=== PATIENT | male | born 1935 | race Caucasian/White ===

== ENCOUNTER → 2016-07-25 | Outpatient (CLI) | payer OTHER, MEDICARE ==
[~2016-07-25] MED LIST: ASPIR 8181 MG PO; ASTELIN30 ML NS; ATORVASTATIN CA20 MG PO; CARDIZEM CD240 MG PO; CARVEDILOL3.125 MG PO; COZAAR 25 MG TA25 M1 PO; CYMBALTA60 MG PO; MELOXICAM7.5 MG PO; MOBIC15 MG PO; PERCOCET 5-3251 EACH PO; PROVENTIL; REGLAN 10 MG TA10 MG PO; SINGULAIR 10 MG10 M1 PO; VICODIN 5-5001 EACH PO; XARELTO15 MG PO; ZYRTEC OR
[2016-07-25 09:22] LABS: CALCIUM 8.7 mg/dL (8.5-10.1); CREATININE 1.2 mg/dL (0.7-1.3)
== END ==
LOC: CAT 08:38
PROVIDERS: Internal Medicine
DX: I48.91 Unspecified atrial fibrillation (principal)

== ENCOUNTER 2017-02-07 08:22 | Emergency (ER) | payer OTHER, MEDICARE ==
[~2017-02-07] VITALS: Ht 175.3 cm; Wt 74.8 kg
[2017-02-07] MEDS ORDERED: VALIUM5 MG PO (08:53)
[2017-02-07] MEDS ORDERED: COMPAZINE10 MG PO (11:33)
[2017-02-07 11:35] VITALS: BP 112/78
== END 2017-02-07 11:38 | disposition home or self-care (01) ==
LOC: ER 08:22
DX: R06.6 Hiccough (principal); I48.91 Unspecified atrial fibrillation; F17.210 Nicotine dependence, cigarettes, uncomplicated; F10.99 Alcohol use, unspecified with unspecified alcohol-induced disorder

== ENCOUNTER 2017-02-16 22:33 | Emergency (ER) | payer OTHER, MEDICARE ==
[~2017-02-16] VITALS: Ht 175.3 cm; Wt 74.8 kg
[~2017-02-16 22:33] MED LIST changes: +COMPAZINE10 MG PO; +VALIUM5 MG PO
[2017-02-16] MEDS ORDERED: CHLORPROMAZINE25 M1 PO (23:44)
[2017-02-16 23:51] LABS: HEMATOCRIT 44.2 % (42.0-52.0); HEMOGLOBIN 14.8 gm/dL (14.0-18.0); MCHC 33.5 g/dL (28.0-37.0); MCV 98.6 fL (80.0-100.0); PLATELET COUNT 196 thou/uL (150-400); RBC 4.48 mil/uL (4.50-6.00); RDW 13.5 % (10.5-14.5); WBC 7.9 thou/uL (4.0-11.0)
[2017-02-17] LABS: MANUAL DIFF YES
[2017-02-17 00:24] VITALS: BP 138/81
[2017-02-17 00:30] LABS: ABSOLUTE NEUTROPHILS 3.5 thou/uL (1.4-8.2); ATYPICAL LYMPHS 4 %; TOTAL CELL COUNT 100
== END 2017-02-17 00:57 | disposition home or self-care (01) ==
LOC: ER 22:33
PROVIDERS: Emergency Medicine
DX: R06.6 Hiccough (principal); I48.91 Unspecified atrial fibrillation; F17.210 Nicotine dependence, cigarettes, uncomplicated; F10.99 Alcohol use, unspecified with unspecified alcohol-induced disorder

== ENCOUNTER → 2017-07-12 | Outpatient (CLI) | payer OTHER, MEDICARE ==
[~2017-07-12] MED LIST changes: +CHLORPROMAZINE25 M1 PO
== END ==
LOC: CAT 11:25
DX: R51 Headache (principal); I48.91 Unspecified atrial fibrillation; Z91.81 History of falling

== ENCOUNTER 2017-09-05 16:26 | Emergency (ER) | payer OTHER, MEDICARE ==
[~2017-09-05] VITALS: Ht 177.8 cm; Wt 72.6 kg
[2017-09-05] MEDS ORDERED: NORFLEX100 MG PO (17:08)
[2017-09-05] MEDS ORDERED: NAPROSYN500 MG PO (17:08)
[2017-09-05 17:35] VITALS: BP 133/81
== END 2017-09-05 17:25 | disposition home or self-care (01) ==
LOC: ER 16:26
DX: S46.811A Strain of other muscles, fascia and tendons at shoulder and upper arm level, right arm, initial encounter (principal); S16.1XXA Strain of muscle, fascia and tendon at neck level, initial encounter; I48.91 Unspecified atrial fibrillation; F17.210 Nicotine dependence, cigarettes, uncomplicated; X58.XXXA Exposure to other specified factors, initial encounter; Y93.89 Activity, other specified; Y92.89 Other specified places as the place of occurrence of the external cause; Y99.8 Other external cause status

== ENCOUNTER 2017-09-07 12:30 | Inpatient (IN) | payer OTHER, MEDICARE ==
[~2017-09-07] VITALS: Ht 172.7 cm; Wt 70.8 kg
[~2017-09-07 12:30] MED LIST changes: -ACCUNEB SO1.25 MG/1 INH; -ARICEPT 5 MG TAB5 MG PO; -DILTIAZEM 24HR180 M2 PO; -KEFLEX500 M2 PO; -OMEPRAZOLE 20 M20 M1 PO
[2017-09-07 12:36] VITALS: BP 155/80
[2017-09-07 14:05] LABS: URINE BILIRUBIN NEGATIVE (Negative); URINE BLOOD TRACE (Negative); URINE CLARITY CLEAR; URINE COLOR YELLOW; URINE GLUCOSE-RANDOM* NEGATIVE (Negative); URINE KETONES NEGATIVE (Negative); URINE NITRITE-REFLEX NEGATIVE (Negative); URINE PROTEIN (DIPSTICK) NEGATIVE (Negative); URINE SPECIFIC GRAVITY <= 1.005 (1.005-1.035); URINE UROBILINOGEN 0.2 E.U./dl (0.2-1.0)
[2017-09-07 14:06] LABS: URINE LEUKOCYTES-REFLEX 1+ (Negative)
[2017-09-07 14:13] LABS: CASTS None Seen /LPF (None Seen); SQUAMOUS 4-10 Moderate /LPF (0-3)
[2017-09-07 14:14] LABS: BACTERIA-REFLEX None Seen /HPF (None Seen); CRYSTALS None Seen /LPF (None Seen); URINE RBC 0-2 Rare /HPF (0-2); URINE WBC-REFLEX 0-5 Rare /HPF (0-5)
[2017-09-07] MEDS ORDERED: DILTIAZEM 24HR180 M2 PO (14:23)
[2017-09-07] MEDS ORDERED: OMEPRAZOLE 20 M20 M1 PO (14:25)
[2017-09-07] MEDS ORDERED: ARICEPT 5 MG TAB5 MG PO (14:26)
[2017-09-07] MEDS ORDERED: ACCUNEB SO1.25 MG/1 INH (14:29)
[2017-09-07 14:49] VITALS: BP 155/80
[2017-09-07 16:05] VITALS: BP 153/81
[2017-09-07 20:00] VITALS: BP 142/78
[2017-09-08 04:00] VITALS: BP 128/86
[2017-09-08 05:07] LABS: CALCIUM 8.6 mg/dL (8.5-10.1)
[2017-09-08 05:32] LABS: POTASSIUM 3.8 mmol/L (3.5-5.1)
[2017-09-08 07:10] VITALS: BP 118/76
[2017-09-08 07:17] LABS: HEMATOCRIT 37.3 % (42.0-52.0); HEMOGLOBIN 12.6 gm/dL (14.0-18.0); MCH 32.7 pg (26.0-34.0); MCHC 33.7 g/dL (28.0-37.0); MCV 96.8 fL (80.0-100.0); RBC 3.86 mil/uL (4.50-6.00)
[2017-09-08 16:25] VITALS: BP 110/73
[2017-09-08 20:24] VITALS: BP 122/83
[2017-09-09 04:30] VITALS: BP 129/83
[2017-09-09 10:26] LABS: HEMATOCRIT 35.6 % (42.0-52.0); HEMOGLOBIN 12.4 gm/dL (14.0-18.0); MCHC 34.8 g/dL (28.0-37.0); MCV 94.9 fL (80.0-100.0); RBC 3.75 mil/uL (4.50-6.00); RDW 12.9 % (10.5-14.5); WBC 7.4 thou/uL (4.0-11.0)
[2017-09-09 10:51] LABS: ALBUMIN 2.9 g/dL (3.4-5.0); MAGNESIUM 2.1 mg/dL (1.8-2.4); POTASSIUM 4.2 mmol/L (3.5-5.1); TOTAL BILIRUBIN 0.5 mg/dL (<0.1-1.0); TOTAL PROTEIN 6.3 g/dL (6.4-8.2)
[2017-09-09] MEDS ORDERED: KEFLEX500 M2 PO (12:11)
[2017-09-09 12:44] VITALS: BP 105/82
== END 2017-09-09 14:14 | disposition home or self-care (01) | DRG 689 ==
LOC: ER 12:30 → EROBS 13:34 → 4N 16:10
PROVIDERS: Emergency Medicine; Internal Medicine; Nurse Practitioner Family
DX: N39.0 Urinary tract infection, site not specified (principal); G93.40 Encephalopathy, unspecified; I42.9 Cardiomyopathy, unspecified; I48.91 Unspecified atrial fibrillation; F03.90 Unspecified dementia, unspecified severity, without behavioral disturbance, psychotic disturbance, mood disturbance, and anxiety; E78.5 Hyperlipidemia, unspecified; F10.10 Alcohol abuse, uncomplicated; F17.210 Nicotine dependence, cigarettes, uncomplicated; Z79.01 Long term (current) use of anticoagulants; Z71.6 Tobacco abuse counseling; Z79.82 Long term (current) use of aspirin; Z79.899 Other long term (current) drug therapy
CPT/HCPCS: 10790

== ENCOUNTER → 2017-09-07 | Outpatient (CLI) | payer OTHER, MEDICARE ==
[~2017-09-07] MED LIST changes: +ACCUNEB SO1.25 MG/1 INH; +ARICEPT 5 MG TAB5 MG PO; +DILTIAZEM 24HR180 M2 PO; +KEFLEX500 M2 PO; +NAPROSYN500 MG PO; +NORFLEX100 MG PO; +OMEPRAZOLE 20 M20 M1 PO
[2017-09-07 10:38] LABS: HEMATOCRIT 38.3 % (42.0-52.0); MCH 32.7 pg (26.0-34.0); MCHC 33.9 g/dL (28.0-37.0); MCV 96.6 fL (80.0-100.0); PLATELET COUNT 227 thou/uL (150-400); RBC 3.97 mil/uL (4.50-6.00); WBC 13.9 thou/uL (4.0-11.0)
[2017-09-07 10:56] LABS: CALCIUM 9.3 mg/dL (8.5-10.1); CREATININE 1.3 mg/dL (0.7-1.3); POTASSIUM 5.1 mmol/L (3.5-5.1)
[2017-09-07 10:58] LABS: ABSOLUTE NEUTROPHILS 10.3 thou/uL (1.4-8.2); ANISOCYTOSIS SLIGHT
[2017-09-07 11:01] LABS: ALBUMIN 3.9 g/dL (3.4-5.0); TOTAL BILIRUBIN 1.3 mg/dL (<0.1-1.0); TOTAL PROTEIN 6.6 g/dL (6.4-8.2)
== END ==
LOC: RAD 09:48 → LABMALL 09:48
PROVIDERS: Nurse Practitioner
DX: M19.011 Primary osteoarthritis, right shoulder (principal); M19.021 Primary osteoarthritis, right elbow; M75.91 Shoulder lesion, unspecified, right shoulder; I67.2 Cerebral atherosclerosis; G31.9 Degenerative disease of nervous system, unspecified; Z91.81 History of falling

== ENCOUNTER 2017-10-08 02:58 | Emergency (ER) | payer OTHER, MEDICARE ==
[~2017-10-08] VITALS: Ht 172.7 cm; Wt 79.4 kg
[~2017-10-08 02:58] MED LIST changes: +ACCUNEB SO1.25 MG/1 INH; +ARICEPT 5 MG TAB5 MG PO; +DILTIAZEM 24HR180 M2 PO; +KEFLEX500 M2 PO; +OMEPRAZOLE 20 M20 M1 PO
[2017-10-08] MEDS ORDERED: CYMBALTA60 MG PO (03:11)
[2017-10-08 03:35] LABS: ABSOLUTE NEUTROPHILS 6.8 thou/uL (1.4-8.2); BASOPHILS 0.5 % (0.0-2.0); EOSINOPHILS 1.9 % (0.0-3.0); HEMATOCRIT 39.8 % (42.0-52.0); HEMOGLOBIN 13.8 gm/dL (14.0-18.0); LYMPHOCYTES 18.8 % (24.0-44.0); MCH 32.7 pg (26.0-34.0); MCHC 34.8 g/dL (28.0-37.0); MCV 93.9 fL (80.0-100.0); MONOCYTES 9.7 % (1.0-8.0); PLATELET COUNT 238 thou/uL (150-400); POLYS 69.1 % (36.0-66.0); RBC 4.23 mil/uL (4.50-6.00); WBC 9.9 thou/uL (4.0-11.0)
[2017-10-08 03:44] LABS: CALCIUM 9.2 mg/dL (8.5-10.1); CREATININE 1.2 mg/dL (0.7-1.3); POTASSIUM 4.2 mmol/L (3.5-5.1)
[2017-10-08 03:50] LABS: ALBUMIN 3.8 g/dL (3.4-5.0); TOTAL BILIRUBIN 0.8 mg/dL (<0.1-1.0); TOTAL PROTEIN 7.2 g/dL (6.4-8.2); URIC ACID* 5.6 mg/dL (2.6-7.2)
[2017-10-08] MEDS ORDERED: TRAMADOL 50 MG50 MG PO (03:57)
[2017-10-08] MEDS ORDERED: KEFLEX500 M1 PO (03:57)
[2017-10-08 04:06] LABS: URINE BILIRUBIN NEGATIVE (Negative); URINE BLOOD 1+ (Negative); URINE CLARITY CLEAR; URINE COLOR YELLOW; URINE GLUCOSE-RANDOM* NEGATIVE (Negative); URINE KETONES NEGATIVE (Negative); URINE NITRITE-REFLEX NEGATIVE (Negative); URINE PROTEIN (DIPSTICK) NEGATIVE (Negative); URINE SPECIFIC GRAVITY 1.015 (1.005-1.035); URINE UROBILINOGEN 0.2 E.U./dl (0.2-1.0)
[2017-10-08 04:10] LABS: URINE LEUKOCYTES-REFLEX TRACE (Negative)
[2017-10-08 04:25] VITALS: BP 145/90
[2017-10-08 04:36] LABS: CASTS None Seen /LPF (None Seen); CRYSTALS None Seen /LPF (None Seen); SQUAMOUS 0-3 Few /LPF (0-3); URINE RBC 3-10 Few /HPF (0-2); URINE WBC-REFLEX 0-5 Rare /HPF (0-5)
[2017-10-08 04:37] LABS: BACTERIA-REFLEX 1-9 Few /HPF (None Seen)
[2017-10-09] MEDS ORDERED: FLOMAX0.4 MG PO (20:18)
[2017-10-09] MEDS ORDERED: DYRENIUM50 MG PO (20:19)
== END 2017-10-08 04:26 | disposition home or self-care (01) ==
LOC: ER 02:58
PROVIDERS: Emergency Medicine
DX: S60.561A Insect bite (nonvenomous) of right hand, initial encounter (principal); L03.113 Cellulitis of right upper limb; M19.041 Primary osteoarthritis, right hand; I48.91 Unspecified atrial fibrillation; E78.5 Hyperlipidemia, unspecified; I42.9 Cardiomyopathy, unspecified; F17.210 Nicotine dependence, cigarettes, uncomplicated; Z88.8 Allergy status to other drugs, medicaments and biological substances; W57.XXXA Bitten or stung by nonvenomous insect and other nonvenomous arthropods, initial encounter; Y93.89 Activity, other specified; Y92.89 Other specified places as the place of occurrence of the external cause; Y99.8 Other external cause status

== ENCOUNTER 2017-10-09 20:05 | Inpatient (IN) | payer OTHER, MEDICARE ==
[~2017-10-09] VITALS: Ht 175.3 cm; Wt 73.5 kg
[~2017-10-09 20:05] MED LIST changes: +KEFLEX500 M1 PO; +TRAMADOL 50 MG50 MG PO
[2017-10-09 20:12] VITALS: BP 109/75
[2017-10-09] MEDS ORDERED: FLOMAX0.4 MG PO (20:18)
[2017-10-09] MEDS ORDERED: DYRENIUM50 MG PO (20:19)
[2017-10-09 21:33] LABS: BASOPHILS 0.5 % (0.0-2.0); EOSINOPHILS 2.2 % (0.0-3.0); HEMOGLOBIN 13.8 gm/dL (14.0-18.0); LYMPHOCYTES 26.6 % (24.0-44.0); MCH 32.8 pg (26.0-34.0); MCHC 35.3 g/dL (28.0-37.0); MCV 93.1 fL (80.0-100.0); MONOCYTES 10.5 % (1.0-8.0); PLATELET COUNT 237 thou/uL (150-400); POLYS 60.2 % (36.0-66.0); RBC 4.19 mil/uL (4.50-6.00); RDW 14.4 % (10.5-14.5); WBC 11.6 thou/uL (4.0-11.0)
[2017-10-09 21:45] LABS: CALCIUM 9.5 mg/dL (8.5-10.1); CREATININE 1.2 mg/dL (0.7-1.3); POTASSIUM 3.9 mmol/L (3.5-5.1)
[2017-10-09 21:51] LABS: TOTAL BILIRUBIN 0.5 mg/dL (<0.1-1.0); TOTAL PROTEIN 7.8 g/dL (6.4-8.2)
[2017-10-10 08:13] LABS: HEMATOCRIT 35.4 % (42.0-52.0); HEMOGLOBIN 12.6 gm/dL (14.0-18.0); MCH 32.9 pg (26.0-34.0); MCHC 35.4 g/dL (28.0-37.0); MCV 92.8 fL (80.0-100.0); RBC 3.82 mil/uL (4.50-6.00); RDW 14.4 % (10.5-14.5); WBC 7.9 thou/uL (4.0-11.0)
[2017-10-10 11:47] VITALS: BP 110/81
[2017-10-10 12:15] VITALS: BP 125/93
[2017-10-10 16:00] VITALS: BP 128/94
[2017-10-10 20:20] VITALS: BP 121/85
[2017-10-11 04:30] VITALS: BP 124/85
[2017-10-11] MEDS ORDERED: CEFDINIR300 MG PO (08:01)
[2017-10-11] MEDS ORDERED: PREDNISONE 20 M20 M1 PO (08:01)
[2017-10-11 12:16] VITALS: BP 109/58
== END 2017-10-11 13:29 | disposition home or self-care (01) | DRG 603 ==
LOC: ER 20:05 → 4E 22:40 → ER 22:40 → EROBS 22:40 → 4E 10-10 12:25 → ENTRNSPT 10-11 13:13 → EDTRNSPTSTS 10-11 13:16 → 4E 10-11 13:29
PROVIDERS: Family Medicine; Physician Assistant
DX: L03.113 Cellulitis of right upper limb (principal); I42.9 Cardiomyopathy, unspecified; M10.9 Gout, unspecified; I48.91 Unspecified atrial fibrillation; F03.90 Unspecified dementia, unspecified severity, without behavioral disturbance, psychotic disturbance, mood disturbance, and anxiety; E78.5 Hyperlipidemia, unspecified; M19.90 Unspecified osteoarthritis, unspecified site; Z16.30 Resistance to unspecified antimicrobial drugs; F17.210 Nicotine dependence, cigarettes, uncomplicated; I10 Essential (primary) hypertension; Z98.49 Cataract extraction status, unspecified eye; Z88.8 Allergy status to other drugs, medicaments and biological substances; Z79.899 Other long term (current) drug therapy
CPT/HCPCS: 10084

== ENCOUNTER 2018-04-05 15:20 | Emergency (ER) | payer OTHER, MEDICARE ==
[~2018-04-05] VITALS: Ht 172.7 cm; Wt 65.8 kg
[~2018-04-05 15:20] MED LIST changes: +CEFDINIR300 MG PO; +DYRENIUM50 MG PO; +FLOMAX0.4 MG PO; +PREDNISONE 20 M20 M1 PO
[2018-04-05 16:36] LABS: HEMATOCRIT 43.8 % (42.0-52.0); HEMOGLOBIN 15.1 gm/dL (14.0-18.0); MCH 33.8 pg (26.0-34.0); MCHC 34.5 g/dL (28.0-37.0); PLATELET COUNT 250 thou/uL (150-400); RBC 4.47 mil/uL (4.50-6.00); RDW 14.2 % (10.5-14.5); WBC 5.3 thou/uL (4.0-11.0)
[2018-04-05 16:46] LABS: ANION GAP 11 mmol/L (7-16); BUN 15 mg/dL (7-18); CALCIUM 9.5 mg/dL (8.5-10.1); CHLORIDE 101 mmol/L (98-107); CO2 26 mmol/L (21-32); CREATININE 1.2 mg/dL (0.7-1.3); GLUCOSE 98 mg/dL (74-106); POTASSIUM 4.3 mmol/L (3.5-5.1); SODIUM 138 mmol/L (136-145)
[2018-04-05 16:55] LABS: MAGNESIUM 2.1 mg/dL (1.8-2.4); TROPONIN-I <0.06 ng/mL (<0.06)
[2018-04-05 17:01] LABS: ABSOLUTE NEUTROPHILS 2.3 thou/uL (1.4-8.2)
[2018-04-05 17:49] VITALS: BP 119/68
--- NOTE | 2018-04-05 19:24 | EKG ---
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[place] : 1935 Requested By: David Calle Order Number: [id number] MD: Cody Zapata Measurements Intervals [place] Rate: 130 P: [place]: QRS: -88 QRSD: 88 T: 85 QT: 368 QTc: 541 Interpretive Statements Atrial fibrillation Left anterior fascicular block Poor R wave progression Nonspecific ST-T wave changes PVC versus Christine beat Compared to ECG 02/28/2017 18:51:07 No significant changes Electronically Signed On 04-05-2018 19:24:00 SOFTWARE TESTING SPECIALIST by Cody Zapata [email or web address] <ELECTRONICALLY SIGNED> By: Cody Zapata MD 04/05/18 1924 1542 1542 Cody Zapata MD /EPI
== END 2018-04-05 17:50 | disposition home or self-care (01) ==
LOC: ER 15:20
PROVIDERS: Physician Assistant
DX: I48.91 Unspecified atrial fibrillation (principal); R42 Dizziness and giddiness; F17.210 Nicotine dependence, cigarettes, uncomplicated; F03.90 Unspecified dementia, unspecified severity, without behavioral disturbance, psychotic disturbance, mood disturbance, and anxiety; I42.9 Cardiomyopathy, unspecified; E78.5 Hyperlipidemia, unspecified; Z88.8 Allergy status to other drugs, medicaments and biological substances

== ENCOUNTER 2019-01-02 15:31 | Inpatient (IN) | payer OTHER, MEDICARE ==
[~2019-01-02] VITALS: Ht 175.3 cm; Wt 67.4 kg
[2019-01-02 15:41] VITALS: BP 69/49
[2019-01-02 16:46] LABS: HEMATOCRIT 43.8 % (42.0-52.0); HEMOGLOBIN 14.8 gm/dL (14.0-18.0); MCH 33.7 pg (26.0-34.0); MCHC 33.7 g/dL (28.0-37.0); MCV 99.8 fL (80.0-100.0); PLATELET COUNT 204 thou/uL (150-400); RBC 4.38 mil/uL (4.50-6.00); RDW 13.6 % (10.5-14.5); WBC 7.2 thou/uL (4.0-11.0)
[2019-01-02 16:54] LABS: ANION GAP 8 mmol/L (7-16); BUN 23 mg/dL (7-18); CALCIUM 9.2 mg/dL (8.5-10.1); CHLORIDE 100 mmol/L (98-107); CO2 28 mmol/L (21-32); CREATININE 1.6 mg/dL (0.7-1.3); GLUCOSE 121 mg/dL (74-106); POTASSIUM 4.2 mmol/L (3.5-5.1); SODIUM 136 mmol/L (136-145)
[2019-01-02 17:04] LABS: ALBUMIN 3.5 g/dL (3.4-5.0); SGOT 14 U/L (15-37); SGPT 12 U/L (30-65); TOTAL BILIRUBIN 0.8 mg/dL (<0.1-1.0); TOTAL PROTEIN 6.7 g/dL (6.4-8.2); TROPONIN-I <0.06 ng/mL (<0.06)
[2019-01-02 17:07] LABS: ABSOLUTE NEUTROPHILS 4.8 thou/uL (1.4-8.2)
[2019-01-02 17:08] LABS: ANISOCYTOSIS 1+
[2019-01-02 17:49] VITALS: BP 96/62
[2019-01-02 18:06] VITALS: BP 107/76
[2019-01-02] MEDS ORDERED: CARDIZEM CD120 MG PO (18:11)
[2019-01-02] MEDS ORDERED: NAMENDA 5 MG TAB5 M1 PO (18:12)
[2019-01-02 18:30] VITALS: BP 119/86
--- NOTE | 2019-01-02 19:15 | NUR ---
PT ADMITED FROM ER. ALERT AND ORIENTED. PT ORIENTED TO THE ROOM AND THE CALL LIGHT SYSTEM. CONTACT ISOLATION IMPLEMENTED. WILL CONTINUE TO MONITOR.
[2019-01-02 20:53] VITALS: BP 104/68
[2019-01-03 00:17] VITALS: BP 131/92
[2019-01-03 04:35] LABS: URINE BILIRUBIN NEGATIVE (Negative); URINE BLOOD NEGATIVE (Negative); URINE CLARITY CLEAR; URINE COLOR YELLOW; URINE GLUCOSE-RANDOM* NEGATIVE (Negative); URINE KETONES NEGATIVE (Negative); URINE LEUKOCYTES-REFLEX NEGATIVE (Negative); URINE NITRITE-REFLEX NEGATIVE (Negative); URINE PROTEIN (DIPSTICK) NEGATIVE (Negative); URINE SPECIFIC GRAVITY 1.025 (1.005-1.035)
[2019-01-03 04:49] VITALS: BP 158/88
--- NOTE | 2019-01-03 05:10 | NUR ---
ASSUMED PT CARE AT 1900. PT WAS AN ADMIT. DAUGHTER AT BEDSIDE. PT IS ALERT AND ORIENTED BUT FORGETFUL. ADMISSION ASSESSMENT AND EDUCATION COMPLETED. DAUGHTER ASSISTED WITH THAT. NO SIGN OF DISTRESS NOTED. FALL PRECAUTION IN PLACE. NO SCHEDULED MEDS ADMINISTERED. PT IS STABLE. CONTINUE TO MONITOR.
[2019-01-03 07:15] VITALS: BP 140/84
[2019-01-03 10:39] VITALS: BP 127/97
[2019-01-03] MEDS ORDERED: ACYCLOVIR 400400 MG PO (15:10)
--- NOTE | 2019-01-03 15:10 | EKG ---
[address] [address] ELECTROCARDIOGRAM REPORT Name: JOSETTE REYNA Room #: 216-P ADM IN M.R.#: [id number] Admission: 01/02/19 Attend Phys: Edil Reyes MD Discharge: Date of : 33 Report #: [id number] THIS REPORT FOR: //name// 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: [place]ARLETT : 1935 Requested By: Shantal Hanson Order Number: [id number] MD: Tevin Vargas Measurements Intervals [place] Rate: 90 P: [place]: QRS: -74 QRSD: 98 T: 76 QT: 382 QTc: 468 Interpretive Statements Atrial fibrillation Ventricular premature complex Left anterior fascicular block Borderline low voltage, extremity leads Abnormal R-wave progression, late transition Compared to ECG 04/05/2018 15:42:27 Poor R-wave progression no longer present ST (T wave) deviation no longer present Electronically Signed On 01-03-2019 15:10:51 CDT by Tevin Vargas [email or web address] <ELECTRONICALLY SIGNED> By: Tevin Vargas MD 01/03/19 1510 1613 1613 Tevin Vargas MD /EPI
[2019-01-03 15:16] VITALS: BP 127/97
--- NOTE | 2019-01-03 15:27 | NUR ---
ASSESSMENT CHARTED PT ALERT TO SELF AND SITUATION WITH FORGETFULNESS. RECEIVED PRN PAIN MED FOR LEFT BACK PAIN WITH PARIAL RELIEF. CONTACT ISOLATION MAINTAINED. SEEN BY DR. ORELLANA. ORDERS GIVEN TO DISCHARGE PT TO HOME. DISCHARGE INSTRUCTIONS GIVEN TO PT AND THE SON. PT LEFT THE FACILITY ACCOMPANIED BY THE SON.
== END 2019-01-03 15:26 | disposition home or self-care (01) | DRG 872 ==
LOC: ER 15:31 → EROBS 17:30 → 2N 17:30
PROVIDERS: Nurse Practitioner Family; ADMIT Family Medicine
DX: A41.9 Sepsis, unspecified organism (principal); I42.9 Cardiomyopathy, unspecified; N17.9 Acute kidney failure, unspecified; B02.9 Zoster without complications; I48.91 Unspecified atrial fibrillation; F03.90 Unspecified dementia, unspecified severity, without behavioral disturbance, psychotic disturbance, mood disturbance, and anxiety; E78.5 Hyperlipidemia, unspecified; I95.9 Hypotension, unspecified; E86.1 Hypovolemia; F17.210 Nicotine dependence, cigarettes, uncomplicated; Z82.49 Family history of ischemic heart disease and other diseases of the circulatory system; Z88.8 Allergy status to other drugs, medicaments and biological substances; Z79.899 Other long term (current) drug therapy
CPT/HCPCS: 10081

== ENCOUNTER 2019-05-17 13:59 | Emergency (ER) | payer OTHER, MEDICARE ==
[~2019-05-17] VITALS: Ht 177.8 cm; Wt 63.5 kg
[~2019-05-17 13:59] MED LIST changes: +ACYCLOVIR 400400 MG PO; +CARDIZEM CD120 MG PO; +NAMENDA 5 MG TAB5 M1 PO
[2019-05-17] MEDS ORDERED: COLACE100 MG PO (16:38)
[2019-05-17] MEDS ORDERED: PROBIOTIC1 EAC1 PO (16:38)
[2019-05-17 17:24] VITALS: BP 110/72
== END 2019-05-17 17:24 | disposition home or self-care (01) ==
LOC: ER 13:59
DX: K56.41 Fecal impaction (principal); I48.91 Unspecified atrial fibrillation; E78.5 Hyperlipidemia, unspecified; F03.90 Unspecified dementia, unspecified severity, without behavioral disturbance, psychotic disturbance, mood disturbance, and anxiety; F17.210 Nicotine dependence, cigarettes, uncomplicated; Z88.8 Allergy status to other drugs, medicaments and biological substances

== ENCOUNTER 2020-07-24 08:52 | Emergency (ER) | payer OTHER, MEDICARE ==
[~2020-07-24] VITALS: Ht 172.7 cm; Wt 68.0 kg
[~2020-07-24 08:52] MED LIST changes: +COLACE100 MG PO; +PROBIOTIC1 EAC1 PO
[2020-07-24 09:34] LABS: URINE BILIRUBIN NEGATIVE (Negative); URINE BLOOD 3+ (Negative); URINE CLARITY CLEAR; URINE COLOR YELLOW; URINE GLUCOSE-RANDOM* NEGATIVE (Negative); URINE KETONES NEGATIVE (Negative); URINE LEUKOCYTES-REFLEX TRACE (Negative); URINE NITRITE-REFLEX NEGATIVE (Negative); URINE PROTEIN (DIPSTICK) NEGATIVE (Negative); URINE UROBILINOGEN 0.2 E.U./dl (0.2-1.0)
[2020-07-24 09:36] LABS: ABSOLUTE NEUTROPHILS 3.2 thou/uL (1.4-8.2); BASOPHILS 1.2 % (0.0-2.0); EOSINOPHILS 6.7 % (0.0-3.0); HEMATOCRIT 36.8 % (42.0-52.0); HEMOGLOBIN 12.1 gm/dL (14.0-18.0); LYMPHOCYTES 33.5 % (24.0-44.0); MCH 31.5 pg (26.0-34.0); MCHC 32.9 g/dL (28.0-37.0); MCV 95.7 fL (80.0-100.0); MONOCYTES 10.2 % (1.0-8.0); PLATELET COUNT 173 thou/uL (150-400); POLYS 48.4 % (36.0-66.0); RBC 3.84 mil/uL (4.50-6.00); RDW 14.3 % (10.5-14.5); WBC 6.5 thou/uL (4.0-11.0)
[2020-07-24] MEDS ORDERED: NIACIN 500 MG500 M1 PO (09:37)
[2020-07-24] MEDS ORDERED: FAMOTIDINE 20 M20 MG PO (09:37)
[2020-07-24 09:39] LABS: CALCIUM 8.9 mg/dL (8.5-10.1); CREATININE 1.2 mg/dL (0.7-1.3); POTASSIUM 4.2 mmol/L (3.5-5.1)
[2020-07-24] MEDS ORDERED: COLACE100 MG PO (09:39)
[2020-07-24] MEDS ORDERED: REMERON15 M2 PO (09:39)
[2020-07-24] MEDS ORDERED: IBUPROFEN 400400 M1 PO (09:39)
[2020-07-24 09:43] LABS: BACTERIA-REFLEX 1-9 Few /HPF (None Seen); CASTS None Seen /LPF (None Seen); CRYSTALS None Seen /LPF (None Seen); SQUAMOUS 0-3 Few /LPF (0-3); URINE RBC 3-10 Few /HPF (0-2); URINE WBC-REFLEX 0-5 Rare /HPF (0-5)
[2020-07-24 09:43] LABS: APTT 23.9 Seconds (24.5-32.8); INR 0.95; PROTIME 10.4 Seconds (9.3-11.4)
[2020-07-24 09:45] LABS: ALBUMIN 3.6 g/dL (3.4-5.0); TOTAL BILIRUBIN 0.6 mg/dL (0.2-1.0); TOTAL PROTEIN 6.7 g/dL (6.4-8.2)
[2020-07-24] MEDS ORDERED: LEVAQUIN 500 M500 MG PO (10:21)
[2020-07-24 10:40] VITALS: BP 119/95
== END 2020-07-24 10:40 | disposition home or self-care (01) ==
LOC: ER 08:52
PROVIDERS: Emergency Medicine
DX: R31.9 Hematuria, unspecified (principal); I48.91 Unspecified atrial fibrillation; E78.5 Hyperlipidemia, unspecified; F17.210 Nicotine dependence, cigarettes, uncomplicated; Z79.899 Other long term (current) drug therapy; Z88.8 Allergy status to other drugs, medicaments and biological substances